=== PATIENT | male | born 1980 | race Caucasian/White ===

== ENCOUNTER 2020-10-17 10:19 | Outpatient (CLI) | payer BC ==
[2020-10-17 15:23] LABS: BUN - BLOOD UREA NITROGEN 13 mg/dL (6-20); CALCIUM 9.1 mg/dL (8.5-10.3); CARBON DIOXIDE - CO2 29 mmol/L (21-32); CHLORIDE 99 mmol/L (101-111); CHOL/HDL RATIO 3.8 (<5.0); CHOLESTEROL 230 mg/dL; CREATININE 0.8 mg/dL (0.6-1.2); GFR - MDRD 108 (>89); GLUCOSE 141 mg/dL (70-100); HDL CHOLESTEROL 60 mg/dL; LDL CHOLESTEROL,CALCULATED 149 mg/dL; LDL/HDL RATIO 2.5 (<3.6); POTASSIUM 4.1 mmol/L (3.5-5.0); SODIUM 136 mmol/L (135-145); TRIGLYCERIDES 107 mg/dL; VLDL CHOLESTEROL 21 mg/dL
[2020-10-17 15:39] LABS: CREATININE,URINE 105.6 mg/dL
[2020-10-17 16:03] LABS: MICROALBUMIN,URINE < 0.2 mg/dL (0-300.0)
[2020-10-17 20:08] LABS: ESTIMATED AVERAGE GLUCOSE 143 mg/dL (70-100); HEMOGLOBIN A1c% 6.6 % (4.27-6.07)
== END 2020-10-17 10:20 | disposition home or self-care (01) ==
LOC: LAB.S 10:19
PROVIDERS: ATTEND Internal Medicine
DX: E10.9 Type 1 diabetes mellitus without complications (principal)
CPT/HCPCS: 36415; 80048; 80061; 82043; 82570; 83036; 83721

== ENCOUNTER 2021-06-17 09:08 | Outpatient (CLI) | payer BC ==
[2021-06-17 21:20] LABS: ESTIMATED AVERAGE GLUCOSE 140 mg/dL (70-100); HEMOGLOBIN A1c% 6.5 % (4.27-6.07)
== END 2021-06-17 09:09 | disposition home or self-care (01) ==
LOC: LAB.S 09:08
PROVIDERS: ATTEND Internal Medicine
DX: E10.9 Type 1 diabetes mellitus without complications (principal)
CPT/HCPCS: 36415; 83036